=== PATIENT | female | born 1950 | race Caucasian/White ===

== ENCOUNTER 2017-01-15 12:39 | Emergency (ER) | payer MEDICARE, OTHER ==
[~2017-01-15] VITALS: Ht 170.2 cm; Wt 70.5 kg
[2017-01-15 12:46] VITALS: BP 131/48; PULSE 65; RESP 11; O2SAT 98
[2017-01-15] MEDS ORDERED: HYDROmorphone 1 mg/mL Inj IVPUSH PRN (13:05)
[2017-01-15] MEDS ORDERED: Ondansetron 2 mg/mL 2 mL Inj IVPUSH ONE (13:05)
--- NOTE | 2017-01-15 13:13 | ED.REPORT ---
HPI-Hip/Pelvis Prob/Inj Date of Service Jan 15, 2017 ED Provider: Cuco Culver MD 66 year old female with a history of left hip replacement and 6 dislocations of left hip prosthesis presents to the ER via EMS accompanied by her complaining of left hip pain status post mechanical ground level fall while gardening just prior to arrival, with concern for dislocation. She states that she tripped while stepping over a log in her garden. The toes of her left foot caught on the log, causing her leg to twist as she fell to the ground. Patient reports that the pain/sensation was similar to that associated with prior dislocations. She denies any head or neck trauma, LOC, numbness/tingling, and any further injuries secondary to the fall. Most recent hip dislocation was nearly a year ago. Nursing Notes Stated Complaint: HIP PAIN Chief Complaint: Extremity Trauma Nursing Notes Reviewed: Yes ([employer], [employer] not reconciled) Allergies: Coded Allergies: Penicillins (Verified Allergy, Severe, HIVES, 06/25/12) codeine (Verified Allergy, Severe, NAUSEA, 06/25/12) diphenhydramine (Verified Allergy, Severe, "WIRES HER", 06/25/12) morphine (Verified Allergy, Severe, NAUSEA, 06/25/12) Soap (Verified Allergy, Intermediate, BLISTERS (CAN USE, BUT WASH OFF), 31/08) povidone-iodine (Verified Allergy, Intermediate, BLISTERS (CAN USE, BUT WASH OFF), 03/31/12) Scheduled PRN oxyCODONE (oxyCODONE) 5 Mg Tablet 5-10 MG PO BID PRN PRN For Pain Use for breakthrough pain IF needed. General Time Seen by Provider: 13:03 Chief Complaint Hip injury left Hx Obtained From: Patient Arrived By: Ambulance Onset Occurred: Just prior to arrival Symptom Duration: Since onset Caused by: Accidental Location: Hip, L lateral aspect Hip, L medial aspect Hip, L posterior aspect Quality: Painful Severity: Current: Moderate Severity: Maximum: Moderate Pertinent Negative: Pt denies other symptoms Similar Sx Previous: Yes Past Medical History Past Medical History 6 prior hip dislocations fibromyalgia DM- not medically treated Denies: Asthma, COPD, Congestive heart failure, Coronary artery disease, Hyperlipidemia, Hypertension Denies: Atrial fibrillation Past Surgical History gastric bypass surgery Left hip replacement rotator cuff repairs Smoking History Never Smoker Social History Alcohol Use: Denies alcohol use Drug Use: Denies drug use Other Social History: Good social support, Ambulatory Status Independent Review of Systems Musculoskeletal: Reports: Joint pain (Left Hip), Denies: Back pain, Extremity pain, Lumbar pain, Neck pain, Thoracic pain Neurologic: Denies: Focal weakness, Headache, Numbness, Syncope Complete sys rev & neg: except as marked. Physical Exam Initial Vital Signs Vital Signs (First) Date Time Temp Pulse Resp B/P Pulse Ox O2 Delivery O2 Flow Rate FiO2 01/15/17 12:46 36.7 65 11 131/48 98 Room Air 01/15/17 14:08 2 Initial VS: Reviewed, Vital signs normal General/Constitutional: Well-developed, Well-nourished Head / Eyes: Atraumatic, Normocephalic Neck: Supple, Non-tender, Full range of motion Respiratory: Breath sounds normal, Clear to auscultation, No respiratory distress Cardiovascular: Regular rate & rhythm, Heart sounds normal, Intact distal pulses Upper Extremities: Vascular intact, Neuro intact, No swelling, No tenderness Skin: Warm, Dry, No cyanosis Neurologic: Alert, Oriented, Nonfocal Lower Extremity / Pelvis / MS: Neurologic intact, Vascular intact Left Hip: Positive: Leg shortened, Tenderness present... Palpable dislocation of the Left hip. Interpretation & Diagnostics Lab Results Interpretation Test 01/15/17 14:00 Hold Purple Top Tube Received (Received) Hold Blue Top Tube Received (Received) Hold Red Top Tube Received (Received) Hold [place] Top Tube Received (Received) Hold [place] Top Tube Received (Received) X-Ray Interpretation Xray Interpretation: IMPRESSION: Superior and posterior dislocation of the left femoral head. Dictated by: Sherri Kuo M.D. on 01/15/2017 at 13:30 Approved by: Sherri Kuo M.D. on 01/15/2017 at 13:31 X-Ray Ordered: Hip left Interpretation / Wet Read by: Interpret - Radiologist Procedures Proced Mod Sedation/Analgesia Time: 14:10 Procedure Performed by: ED physician Sedation Time: Enter # minutes (8) Consent / Setup: Informed consent provided, Consent from patient, Time-out performed, Hand hygiene observed, Stand sterile technique, Position supine Indication: Hip reduction Preparation: bus monitor applied, Pulse oximeter applied, Constant attendance, IV access established, Eval last meal time, Supplemental oxygen, Procedure explained, Suction available, End tidal CO2 mon applied VS Prior to Procedure: All vital signs normal Mallampati: Class & Anatomy: 1 tonsils/uvula/s palate Airway Exam: Normal facial anatomy CVS/Resp Exam: Normal breath sounds, Normal heart sounds Neuro Exam: Alert Sedation: Sedation: Propofol (100mg) ASA Classification: 1 normal healthy patient Response During Procedure: Handled secretions adeq, Maintained airway well, Oxygenation stable, Sedation appropriate, Vital signs stable Complications During/After: None, Oxygen desaturation (transient desaturation after procedures completed, was corrected with airway positioning only) Reversal: None required Mental Status After Procedure: Alert, Oriented X3, Response to verbal stim Post-Procedure: Alert prior to discharge, Ambulatory with assist, Pt rtn pre- proc baseline, Vital signs normal Attestation: I performed procedure, I performed sedation Reduction Post Dislocation Hip Time: 14:10 Procedure Performed by: ED physician Consent / Timeout / Setup: Informed consent provided, Consent from patient, Time-out performed, Oxygen administered, Pulse oximeter applied, bus monitor applied, Hand hygiene observed, Stand sterile technique Procedural Sedation/Analgesia: Sedation: Propofol (100mg) Which Hip and Technique: Left hip Neurovascular: Intact pre-procedure, Intact post-procedure Post-Procedure / Complications: Reduced per examination, Procedure successful, X-ray disloc reduced, Hip immobilized, Condition improved, Tolerated procedure well, Patient stable Splint Application - Fx Mgt Time: 14:15 Procedure Performed by: ED physician, Advertising Account Representative Precise Anatomic Location: Left Leg Knee immobilizer Definitive Fracture Care: Splint Post-Procedure / Complications: Cap refill normal, Post splint vascular nl, Post splint neuro nl, Condition improved, Tolerated procedure well, Patient stable Splint Post-Application Eval Extremity Condition: Cap refill < 2 sec, Distal sensation intact, Distal motor Intact, No compartment syndrome Re-Eval/Medical Decision Med Decision/Clinical Course This is a 66-year-old female who presents with her seventh prosthetic left hip dislocation over the years. Last one was a little over a year ago. She was stepping up over a log in her garden caught her foot, and the hip dislocated. She denies any injury, has no additional complaints. She is on chronic pain medicine through her PCP 10 mg twice a day, no change. She is not on any anticoagulants. She has never had a be reduced in the OR, and is successfully reduced on last ED visit with 2 attempts were required moderate amount of propofol at that time. On exam she has local findings of a prosthetic hip dislocation, but the leg is neurovascularly intact. Radiographs confirm a dislocation. Informed consent was obtained, the patient is an excellent candidate for procedural sedation, and received titrated propofol with good clinical effect, and the hip was reduced without difficulty. The patient had a transient desaturation following the successful reduction, there was corrected with simple airway maneuvering. He did not require bag valve ventilation. The patient recovered otherwise uneventfully. Post reduction films demonstrated successful reduction. She was placed in a left knee immobilizer. She has a specialist at [facility] for revisions that she plans to follow-up with. Offered some additional pain medicine for the first couple days, but declines this and indicates she would like to try and sticking with her current regimen, but that she could contact her PCP if there are any additional issues for additional needs. I indicated I would put that in my note. Patient is discharged in much improved condition. Please note, I wrote a prescription for oxycodone for the patient, which she declined as above-. The computer system tracts and a prescription was written, but the prescription was destroyed and not given to the patient at her request. Source of Hx: Old records, EMS Re-Evaluation/Progress #1: Time of Eval: 13:28 Re-Evaluation/Progress Note: Discussed risks/benefits of procedural moderate sedation and hip reduction procedure. Patient is amenable to the plan. Re-Evaluation/Progress #2: Time of Eval: 14:05 Re-Evaluation/Progress Note: Completed procedural moderate sedation and hip reduction. Re-Evaluation/Progress #3: Time of Eval: 14:33 Re-Evaluation/Progress Note: Discussed imaging results and plan to discharge. Patient is amenable to the plan. Return precautions given. All other questions addressed. Differential Diagnosis: Positive: Dislocation hip, anterior, Negative: Abrasion, Abscess, Arterial occlus/ischemia, Fx sacrum, Fx spiral fem shaft, Fx subtrochanteric, Fx superior pubic ramus Counseled Regarding: Diagnosis, Need for follow-up, When/why to return to ED Discharge & Departure Impression: Primary Impression: Displacement of internal left hip prosthesis Disposition: Home Discharge Condition All VS Reviewed: Yes Condition: Stable Referrals: Xu Smith MD (PCP) Scribe Attestation Portions of this note were transcribed by Al Mosley. I, Dr. Culver, personally performed the history, physical exam and medical decision-making; I reviewed and confirmed the accuracy of the information in the transcribed note. Signed by: Joseph Dhillon, 01/15/2017 and 14:18 copies to: Xu Smith MD, Matthew F MD Jan 15, 2017 13:13 AL MOSLEY Jan 15, 2017 13:19
--- NOTE | 2017-01-15 13:32 | DRSVH ---
PROCEDURE: X-RAY LEFT HIP COMPLETE, MINIMUM TWO VIEWS ([id number]) INDICATIONS: trauma/pain TECHNIQUE: 2 views of the hip were acquired. COMPARISON: [facility], , XR HIP 2VW LT, 12/16/2015, 18:11. FINDINGS: Bones: Left hip arthroplasty is present. There is dislocation of the prosthetic femoral head in relat ion to the prosthetic acetabulum in a superior posterior direction. Soft tissues: No suspicious soft tissue calcifications or masses. IMPRESSION: Superior and posterior dislocation of the left femoral head. Dictated by: Sherri Kuo M.D. on 01/15/2017 at 13:30 Approved by: Sherri Kuo M.D. on 01/15/2017 at 13:31
[2017-01-15] MEDS ORDERED: Propofol 10 mg/mL 20 mL Inj ONE (13:42)
[2017-01-15 14:08] VITALS: BP 127/53; PULSE 61; RESP 9; O2SAT 99
--- NOTE | 2017-01-15 14:35 | DRSVH ---
PROCEDURE: X-RAY LEFT HIP COMPLETE, MINIMUM TWO VIEWS ([id number]) INDICATIONS: POST REDUCTION TECHNIQUE: 2 views of the hip were acquired. COMPARISON: None. FINDINGS: Bones: There has been interval reduction of the previously dislocated left prosthetic femoral head in relation to the acetabulum. There is good anatomic alignment. Hardware appears intact. No visualized superimposed fracture. Soft tissues: No suspicious soft tissue calcifications or masses. IMPRESSION: Interval reduction with good anatomic alignment. Dictated by: Sherri Kuo M.D. on 01/15/2017 at 14:32 Approved by: Sherri Kuo M.D. on 01/15/2017 at 14:33
[2017-01-15] MEDS ORDERED: OXYC5TAB72 PO (14:44)
[2017-01-15 15:15] VITALS: BP 111/63; PULSE 54; RESP 17; O2SAT 97
== END 2017-01-15 15:12 | disposition home or self-care (01) ==
LOC: SED 12:39 → EDBD 12:39 → SED 15:12
DX: T84.021A Dislocation of internal left hip prosthesis, initial encounter (principal); W01.0XXA Fall on same level from slipping, tripping and stumbling without subsequent striking against object, initial encounter; Y93.H2 Activity, gardening and landscaping; Y92.007 Garden or yard of unspecified non-institutional (private) residence as the place of occurrence of the external cause; Y99.8 Other external cause status; E11.9 Type 2 diabetes mellitus without complications; Z88.0 Allergy status to penicillin; Z88.5 Allergy status to narcotic agent; Z88.8 Allergy status to other drugs, medicaments and biological substances; Z96.642 Presence of left artificial hip joint
CPT/HCPCS: 27265; 73502; 94799; 96374; 96375; 99285; J1170; J2405